=== PATIENT | female | born 1955 | race Caucasian/White ===

== ENCOUNTER → 2024-07-08 | Outpatient (CLI) | payer MEDICARE, OTHER | LOC: MHCPAIN 12:56 | DX: M43.16 Spondylolisthesis, lumbar region (principal); M48.061 Spinal stenosis, lumbar region without neurogenic claudication; M47.816 Spondylosis without myelopathy or radiculopathy, lumbar region; M16.0 Bilateral primary osteoarthritis of hip | CPT/HCPCS: G0463 ==